=== PATIENT | male | born 1995 | race Caucasian/White ===

== ENCOUNTER 2020-04-05 14:24 | Emergency (ER) | payer SELFPAY ==
[2020-04-05 14:31] VITALS: BMI 29.5
--- NOTE | 2020-04-05 14:31 | XR_ITS ---
PROCEDURE: XR WRIST RT MIN 3V CLINICAL INDICATION: injury Pain COMPARISON: CR XR HAND RT MIN 3V from 04/05/2020 FINDINGS: No fracture is apparent. There is mild lateral subluxation of the 1st metacarpal which could be acute or chronic. Please correlate as the patient's area of pain and tenderness. No other significant anomalies are evident. IMPRESSION: Mild lateral subluxation of the 1st metacarpal otherwise negative right hand and wrist Dictated by: Garett Mccain MD 04/05/2020 15:41 Garett Mccain MD in [place] 04/05/2020 15:41
[2020-04-05 14:43] VITALS: BP 128/77; PULSE 76; RESP 14; TEMP 36.8; O2SAT 98; BMI 29.5
--- NOTE | 2020-04-05 15:48 | HMH.EDUTC ---
[facility] Disposition Clinical Impression: Right hand pain Crushing injury of right hand Qualifiers: Encounter type: initial encounter Qualified Code(s): S67.21XA - Crushing injury of right hand, initial encounter Disposition: Home, Self-Care Condition on Discharge: Good Instructions: DI for Crush Injury, DI for Hand Pain Additional Instructions: Rest the extremity, apply ice for 15 minutes as tolerated three or four times per day, Wear the fede wrap for compression, Elevate the extremity as tolerated while you are resting. Take ibuprofen for pain. I sent in a prescription to your pharmacy. Follow up with Dr. Sung (orthopedics) if you continue to have pain in the hand after 48 hours. I put in a referral but you need to call her office and schedule an appointment. Follow up with your regular doctor. GO TO THE ER FOR ANY WORSENING SYMPTOMS Referrals: PCP,No [Primary Care Provider] - Lucia Sung MD [Physician] - Forms: Work/School Release Time of Disposition: 15:51 Medical Decision Making - Medical Records Medical records reviewed: No: I reviewed the patient's medical records. - Micheal Inquiry Pt receiving controlled substance: No Vital Signs: 04/05/20 14:43 04/05/20 15:55 Temperature 98.3 F 98.3 F Temperature Source Oral Pulse Rate 76 Pulse Rate [Right Brachial] 76 Respiratory Rate 14 14 Blood Pressure 128/77 Blood Pressure [Right Arm] 128/77 Blood Pressure Mean [Right Arm] 94 Blood Pressure Source [Right Arm] Automatic Cuff Blood Pressure Position [Right Arm] Sitting 02 Sat by Pulse Oximetry 98 Oxygen Delivery Method Room Air - Radiology Data #1 Image(s): Hand Image Reviewed: Yes I reviewed the patient's radiology image, Yes I have reviewed radiologist's interpretation Preliminary Findings: No Fracture Seen PROCEDURE: XR WRIST RT MIN 3V CLINICAL INDICATION: injury Pain COMPARISON: CR XR HAND RT MIN 3V from 04/05/2020 FINDINGS: No fracture is apparent. There is mild lateral subluxation of the 1st metacarpal which could be acute or chronic. Please correlate as the patient's area of pain and tenderness. No other significant anomalies are evident. IMPRESSION: Mild lateral subluxation of the 1st metacarpal otherwise negative right hand and wrist Dictated by: Garett Mccain MD 04/05/2020 15:41 Garett Mccain MD in [place] 04/05/2020 15:41 [facility] HPI - General Stated complaint: hit hand oa 04/04 right hand Time Seen by Provider: 04/05/20 14:45 Mode of Arrival: Ambulatory Source of Information: Patient Limitations: No Limitations Description of Symptoms (Recalled from Triage Doc. by RN): PATIENT C/O PAIN IN LEFT HAND AND WRIST AFTER HITTING IT AT WORK ([employer]) YESTERDAY. HEENT Symptoms (Recalled from RN notes): No Resp Symptoms (Recalled from RN notes): No Skin Symptoms (Recalled from RN notes): No MS Symptoms (Recalled from RN notes): Yes Functional Status (Recalled from RN notes): WNL - History of Present Illness Provider Complaint: He states that he punched a wall yesterday. Since then he has had pain and soreness of his right hand at the base of his 5th finger. - Related Data Home Medications Medication Instructions Recorded Confirmed No Known Home Medications 04/05/20 04/05/20 Allergies Allergy/AdvReac Type Severity Reaction Status Date / Time No Known Allergies Allergy Verified 04/05/20 14:47 - Worker's Comp Is this a Worker's Comp case?: No [facility] History - Hepatitis A Screen Drug use history?: No High risk sexual behaviors?: No History of sexually transmitted infection?: No Currently employed?: No Childcare worker?: No Do you have indoor plumbing?: Yes Do you have electricity?: Yes Attestation statement:: This patient has been screened for Hepatitis A risk factors. I have reviewed the patient's past medical history: Yes - Social History Alcohol Intake: never Occupational Status: other Housing: house ROS Obt
[2020-04-05 15:55] VITALS: BP 128/77; PULSE 76; RESP 14; TEMP 36.8; O2SAT 98
== END 2020-04-05 15:58 | disposition home or self-care (01) ==
PROVIDERS: Emergency Provider Nurse Practitioner Family
DX: S67.21XA Crushing injury of right hand, initial encounter (principal); W22.01XA Walked into wall, initial encounter; Y92.63 Factory as the place of occurrence of the external cause; Y99.0 Civilian activity done for income or pay
CPT/HCPCS: 73110; 73130; 99201

== ENCOUNTER → 2021-05-08 15:53 | Outpatient (CLI) | payer SELFPAY | PROVIDERS: Visit Provider Nurse Practitioner | DX: Z20.822 Contact with and (suspected) exposure to COVID-19 (principal) | CPT/HCPCS: C9803; U0003; U0005 ==

== ENCOUNTER 2022-12-11 17:58 | Emergency (ER) | payer SELFPAY ==
[2022-12-11 18:01] VITALS: BP 153/72; PULSE 92; RESP 17; TEMP 37; O2SAT 92; BMI 35.4
--- NOTE | 2022-12-11 18:14 | HMH.EDGENADL ---
Discharge Plan Disposition Patient Disposition: Home, Self-Care Prescriptions Prescriptions: No Action No Known Home Medications Clinical Impressions Clinical Impression: Mass of left testicle, Inguinal hernia Instructions Patient Instructions: DI for Groin Hernia Discharge ED Provider: Mindy Cramer General Adult HPI <Mindy Cramer MD - Last Filed: 12/11/22 19:25> General Chief complaint: Urogenital-Male Stated complaint: Male issues Time Seen by Provider: 12/11/22 18:14 History of Present Illness HPI narrative: Patient is a 27-year-old male presenting with left scrotal swelling over the last few days. States that this has been intermittent since the last 2 years and he was evaluated for this several years ago at an ultrasound was told that he has spermatic cord swelling. States he has intermittently had some dysuria but has not had anything as of late. Denies any purulence coming from his penis or any STD exposures. Does lift heavy things at work. States that in the past some of the scrotal swelling has come and gone at the times when he notices it but this time its been persistent for the last several days. No sudden pain associate with this. No significant pain right now it is relatively asymptomatic. Related Data Home Medications Medication Instructions Recorded Confirmed No Known Home Medications 04/05/20 04/05/20 Allergies Allergy/AdvReac Type Severity Reaction Status Date / Time No Known Allergies Allergy Verified 04/05/20 14:47 <Isidro Abdullahi (ED)MD - Last Filed: 12/11/22 21:12> General Mode of Arrival: Ambulatory Source of Information: Patient and Parent(s) Limitations: No Limitations [facility] <Mindy Cramer MD - Last Filed: 12/11/22 19:25> [facility] Disclaimer: The information contained in this section may have been updated after the patient was seen, as this information can be updated by other users. Social History Smoking Status: Never smoker alcohol intake: never current occupational status: other Travel in the last 8 weeks: None housing: house <Mindy Cramer MD - Last Filed: 12/11/22 19:25> ROS Obtained: Yes All systems reviewed & no additional complaints except as documented Physical Exam <Mindy Cramer MD - Last Filed: 12/11/22 19:25> General General appearance: alert Respiratory Respiratory exam: Present normal lung sounds bilaterally; Absent respiratory distress Cardiovascular Cardiovascular exam: Present regular rate; Absent tachycardia Abdominal Exam Abdominal exam: Present other (Left scrotal swelling that extends into the left inguinal region) Neurological Exam Neurological exam: Present alert and oriented X3 <Isidro Abdullahi MD (ED) - Last Filed: 12/11/22 21:12> Head Head exam: atraumatic Eye Eye exam: Present PERRL and EOMI ENT ENT exam: Present normal oropharynx Neck Neck exam: Present trachea midline exam: Present scrotal swelling and other (lt inguinal hernia w/o incarceration); Absent urethral discharge Extremities Exam Extremities exam: Present full ROM Psychiatric Psychiatric exam: Present normal affect Skin Skin exam: Absent rash Medical Decision Making <Mindy Cramer MD - Last Filed: 12/11/22 19:25> Micheal Inquiry Pt receiving controlled substance: No Vital Signs: 12/11/22 18:01 12/11/22 18:30 Temperature 98.6 F Temperature Source Oral Pulse Rate 92 H Pulse Rate [Left Radial] 92 H Respiratory Rate 17 20 Blood Pressure 121/61 Blood Pressure [Right Arm] 153/72 H Blood Pressure Mean 81 Blood Pressure Mean [Right Arm] 99 Blood Pressure Source [Right Arm] Automatic Cuff Blood Pressure Position [Right Arm] Sitting 02 Sat by Pulse Oximetry 92 L 98 Oxygen Delivery Method Room Air Lab Data Lab Results 12/11/22 19:28: Lactate Dehydrogenase 194 L, HCG, Quant < 2 12/11/22 19:28: WBC 6.9, RBC 5.07, Hgb 15.3, Hct 45.9, MCV 90.5, MCH 30.1, MCHC 33.3, RDW 12.5, Plt Count 354, MPV 7.
--- NOTE | 2022-12-11 18:19 | US_ITS ---
PROCEDURE INFORMATION: Exam: US Scrotum Exam date and time: 12/11/2022 6:43 PM Age: 27 years old Clinical indication: Scrotum pain; Additional info: Left scrotal pain and swelling. Some pain. Been going on for a while TECHNIQUE: Imaging protocol: Real-time ultrasound of the scrotum and contents with color Doppler and image documentation. COMPARISON: SCRO US SCROTUM 08/18/2016 11:16 AM FINDINGS: Right testicle: Normal. No mass. No torsion. Normal vascular flow. Left testicle: Superior to the left testicle there is a heterogeneous echogenicity mass, possibly a large inguinal hernia. There appears to be minimal blood flow in the mass. The left testicle itself is normal with no findings of torsion. Epididymides: Normal. Scrotum/soft tissues: Trace bilateral hydroceles. IMPRESSION: 1. No testicular torsion or intratesticular mass. 2. Superior to the left testicle there is a heterogeneous echogenicity mass, possibly a large left inguinal hernia. Recommend CT scan correlation.
[2022-12-11 18:30] VITALS: BP 121/61; PULSE 92; RESP 20; O2SAT 98
--- NOTE | 2022-12-11 19:18 | CT_ITS ---
PROCEDURE INFORMATION: Exam: CT Abdomen And Pelvis With Contrast Exam date and time: 12/11/2022 7:58 PM Age: 27 years old Clinical indication: Abdominal pain; Additional info: Abnormal US, follow up for possible tumor/mass TECHNIQUE: Imaging protocol: Computed tomography of the abdomen and pelvis with contrast. Radiation optimization: All CT scans at this facility use at least one of these dose optimization techniques: automated exposure control; mA and/or kV adjustment per patient size (includes targeted exams where dose is matched to clinical indication); or iterative reconstruction. Contrast material: ISOVUE; Contrast volume: 75 ml; Contrast route: IV; REPORTING DATA: Count of CT and Cardiac NM exams in prior 12 months: This patient has received 0 known CTs and 0 known cardiac nuclear medicine studies in the 12 months prior to the current study. COMPARISON: US TESTICULAR 12/11/2022 6:43 PM FINDINGS: Lungs: Minimal right basilar atelectasis. Liver: Normal. No mass. Gallbladder and bile ducts: Normal. No calcified stones. No ductal dilation. Pancreas: Normal. No ductal dilation. Spleen: Normal. No splenomegaly. Adrenal glands: Normal. No mass. Kidneys and ureters: Normal. No hydronephrosis. Stomach and bowel: Unremarkable. No obstruction. No mucosal thickening. Appendix: Appendectomy change. Intraperitoneal space: Unremarkable. No free air. No significant fluid collection. Vasculature: Unremarkable. No abdominal aortic aneurysm. Lymph nodes: Unremarkable. No enlarged lymph nodes. Urinary bladder: Unremarkable as visualized. Reproductive: Unremarkable as visualized. Bones/joints: Unremarkable. No acute fracture. Soft tissues: There is a large left-sided fat containing inguinal hernia which accounts for the abnormality on the comparison ultrasound exam. There is a trace amount of fluid in the neck of the hernia. IMPRESSION: There is a large left-sided fat containing inguinal hernia accounting for the ultrasound abnormality. Correlate for incarceration of the hernia clinically. No significant findings of strangulation on CT.
[2022-12-11 19:37] LABS: Basophils # 0.1 K/mm3 (0-0.2); Basophils % 1.2 % (0.1-2.0); Eosinophils # 0.2 K/mm3 (0.0-0.4); Eosinophils % 3.2 % (0.1-12.0); Hematocrit 45.9 % (42.0-52.0); Hemoglobin 15.3 g/dL (14.1-18.0); Lymphocytes # 2.2 K/mm3 (0.7-4.5); Lymphocytes % 31.7 % (10-50); Mean Corpuscular HGB Conc 33.3 g/dL (31.8-35.4); Mean Corpuscular Hemoglobin 30.1 pg (27.0-31.2); Mean Corpuscular Volume 90.5 fl (80-94); Mean Platelet Volume 7.6 fl (7.4-10.4); Monocytes # 0.5 K/mm3 (0.1-1.0); Monocytes % 7.6 % (1.7-9.3); Neutrophils # 3.9 K/mm3 (1.8-7.8); Neutrophils % 56.2 % (37.0-80.0); Platelet Count 354 K/mm3 (142-424); Red Blood Count 5.07 M/mm3 (4.60-6.20); Red Cell Distribution Width 12.5 % (11.5-17.5); White Blood Count 6.9 K/mm3 (4.8-10.8)
[2022-12-11 19:40] LABS: Chloride 97 mmol/L (98-107); Potassium 3.9 mmoL/L (3.5-5.1); Sodium 139 mmol/L (136-145)
[2022-12-11 19:42] LABS: Alanine Aminotransferase 58 U/L (12-78); Aspartate Amino Transferase 39 U/L (17-59); Bilirubin,Total 1.1 mg/dl (0.2-1.3); Blood Urea Nitrogen 14 mg/dl (9-20); Creatinine Clearance Estimated 214 mL/min (50-200); Estimated Glomerular Filt Rate 116 ml/min (>60); GFR (African American) 140 ML/MIN (>60)
[2022-12-11 19:43] LABS: Albumin/Globulin Ratio 1.5 (1.1-1.8); Alkaline Phosphatase 63 U/L (38-126); Anion Gap 17.9 mEq/L (5-15); Calcium 9.1 mg/dl (8.4-10.2); Carbon Dioxide 28 mmol/L (22.0-30.0); Globulin 3.4 g/dL (1.3-3.2); Glucose 90 mg/dl (74-100); Total Protein,Serum 8.4 g/dl (6.3-8.2)
[2022-12-11 19:54] LABS: Lactate Dehydrogenase 194 U/L (313-618)
[2022-12-11 20:01] LABS: HCG,Quantitative < 2 mIU/ml (0-5.42)
[2022-12-11 21:14] VITALS: BP 121/77; PULSE 80; RESP 16; TEMP 36.7; O2SAT 98
[2022-12-13 08:12] LABS: AFP, Tumor Marker 2.9 ng/mL (0.0-5.7)
== END 2022-12-11 21:16 | disposition home or self-care (01) ==
PROVIDERS: Emergency Provider Student in an Organized Health Care Education/Training Program
DX: K40.90 Unilateral inguinal hernia, without obstruction or gangrene, not specified as recurrent; R22.2 Localized swelling, mass and lump, trunk
CPT/HCPCS: 74177; 76870; 80053; 82105; 83615; 84702; 85025; 96360; 99285; Q9967

== ENCOUNTER 2024-10-19 08:37 | Emergency (ER) | payer OTHER, SELFPAY ==
[2024-10-19 08:45] VITALS: BP 118/60; PULSE 68; RESP 16; TEMP 36.7; O2SAT 98; BMI 34.9
[2024-10-19] MEDS: ACETAMINOPHEN 500MG TAB 1000 MG PO (09:03)
[2024-10-19] MEDS: IBUPROFEN 400 MG TABLET 800 MG PO (09:03)
--- NOTE | 2024-10-19 09:16 | ED_ITS ---
Discharge Plan Disposition Patient Disposition: Home, Self-Care Condition: Good Prescriptions Prescriptions: No Action No Known Home Medications Referrals Follow up/Referrals: Provider,Referral, [Primary Care Provider] - See instructions Activity Restrictions/Add. Instructions Additional Instructions/Restrictions: You were evaluated in the emergency department today. At this time, x-rays do not show any broken bones. If you continue to have significant pain, it may be worthwhile to obtain a repeat x-ray in 1 week with primary care. Sometimes fractures can be missed on initial x-ray. Take Tylenol and ibuprofen every 4-6 hours as needed for pain. Rest, ice, and elevate your hand to help reduce pain and swelling. Return to the emergency department for new or worsening symptoms. Clinical Impressions Clinical Impression: Strain of right thumb Stand Alone Forms Stand Alone Forms: Work/School Release Instructions Patient Instructions: DI for Hand Injury, DI for Hand Pain Print Language Print Language: Filipino Discharge ED Provider: Rosalia Rahman General Adult HPI General Chief complaint: Extremity Injury, Upper Stated complaint: Pain and swelling L thumb Time Seen by Provider: 10/19/24 08:57 Mode of Arrival: Ambulatory Source of Information: Patient Description of Symptoms (Recalled from ER Triage Doc. by RN): Patient reports jamming his right thumb two days ago at work. Complaint of pain and swelling. History of Present Illness HPI narrative: This patient is a 29-year-old male who denies significant past medical history presenting to the emergency department for evaluation with concern for left thum b injury. He states that he jammed his thumb at work 2 days ago and has had pain in his left thumb since. He still able to move it but he states that range of motion is limited secondary to swelling. No numbness, tingling, or other concerns Related Data Home Medications ?Medication ?Instructions ?Recorded ?Confirmed No Known Home Medications 04/05/20 12/15/22 Allergies Allergy/AdvReac Type Severity Reaction Status Date / Time No Known Allergies Allergy Verified 12/15/22 13:43 [facility] Disclaimer: The information contained in this section may have been updated after the patient was seen, as this information can be updated by other users. Surgical History History of appendectomy Social History Smoking Status: Never smoker alcohol intake: never current occupational status: other Travel in the last 8 weeks: None housing: house Have you lived/traveled outside [place] in past 30 days?: No Contact w/someone who lives/traveled outside US past 30 days?: No Exposure to someone with infectious disease in past 14 days?: No Do you have a fever (greater than 100.4 F or 38 C)?: No Have you tested positive for COVID-19: No Exposed to someone with COVID-19 in past 14 days?: No Do you have a sore throat?: No Do you have a cough?: No Do you have any weakness?: No Do you have any diarrhea?: No Are you experiencing any unusual bleeding?: No Do you have any muscle aches/pain?: No Do you have any abdominal pain?: No Are you experiencing loss of taste or smell?: No ROS Obtained: Yes All systems reviewed & no additional complaints except as documented Physical Exam General General appearance: alert and in no apparent distress Head Head exam: atraumatic and normocephalic Eye Eye exam: Present normal appearance, PERRL and EOMI ENT ENT exam: Present normal exam, normal oropharynx, mucous membranes moist and normal external ear exam Neck Neck exam: Present normal inspection, full ROM and trachea midline; Absent tenderness Chest Chest inspection: Present normal inspection and symmetric chest wall rise; Absent tenderness Respiratory Respiratory exam: Present normal lung sounds bilaterally; Absent respiratory distress, wheezes, stridor or accessory muscle use Cardiovascular Cardiovascular exam: Present regular rate and normal rhythm Abdominal Exam Abdominal exam: Present soft; Absent distention, tenderness or guarding Extremities Exam Extremities exam: Present full ROM, tenderness, normal capillary refill and other (Intact range of motion of the left thumb with some soft tissue swelling. Neurovascularly intact distally. He has tenderness to palpation over the metacarpal joint and the proximal phalanx but no anatomical snuffbox tenderness.); Absent edema Back Exam Back exam: Present normal inspection and full ROM; Absent tenderness Neurological Exam Neurological exam: Present alert, oriented X3, CN II-XII intact and normal gait; Absent motor sensory deficit Psychiatric Psychiatric exam: Present normal affect and normal mood Skin Skin exam: Present warm and dry Medical Decision Making Medical Records Medical records reviewed: Yes I reviewed the patient's medical records. Screening: Per USPSTF and CDC recommendations, given the prevalence of disease in our region, it is our hospital?s policy to screen for HIV and viral Hepatitis for all patients aged 18 and over and those with ongoing risk factors. Micheal Inquiry Pt receiving controlled substance: No Vital Signs: 10/19/24 08:45 10/19/24 10:37 Temperature 98.0 F 98.0 F Temperature Source Oral Oral Pulse Rate 64 Pulse Rate [Radial] 68 Respiratory Rate 16 16 Blood Pressure 105/62 L Blood Pressure [Right Arm] 118/60 Blood Pressure Mean [Right Arm] 79 Blood Pressure Source Automatic Cuff Blood Pressure Source [Right Arm] Manual Cuff/ Doppler Blood Pressure Position Sitting Blood Pressure Position [Right Arm] Sitting 02 Sat by Pulse Oximetry 98 Oxygen Delivery Method Room Air Room Air Lab Data Lab results reviewed: Yes I reviewed the patient's lab results. Orders (Tests/Meds): ED MEDICATIONS Discontinued Medications Generic Name Dose Route Start Last Admin Trade Name Freq PRN Reason Stop Dose Admin Acetaminophen 1,000 mg 10/19/24 08:58 10/19/24 09:03 Acetaminophen 500mg Tab PO 10/19/24 08:59 1,000 mg ONCE ONE Administration Ibuprofen 800 mg 10/19/24 08:58 10/19/24 09:03 Ibuprofen 400 Mg Tablet PO 10/19/24 08:59 800 mg ONCE ONE Administration ORDERS Category Date Time Status XR hand RT min 3V Stat Exams 10/19/24 09:26 Completed Medical Decision Narrative: In summary, this patient is a 29-year-old male presenting to the Emergency Department for evaluation of left thumb pain after jamming it at work 2 days ago. Differential diagnoses considered include but are not limited to, contusion, strain/sprain, tendon injury, neurovascular injury. Ruling out the most morbid conditions drove assessment. On exam, the patient is neurologically vascularly intact with intact range of motion of the left thumb. He does have some soft tissue swelling. He has no tenderness over his anatomical snuffbox to suggest scaphoid fracture. Workup included x-rays of the left hand. Patient was given oral Tylenol and ibuprofen for pain. I independently interpreted x-ray prior to the radiologist read and noted no acute fracture. Please see their read for final interpretation. Ultimately at this time, I feel the patient is appropriate for discharge with instructions for supportive management of likely strain/sprain. He was given instructions for close follow-up, strict return precautions, and he was discharged after all questions were answered. Critical Care Critical Care Time Critical Care Time: No
--- NOTE | 2024-10-19 09:26 | XR_ITS ---
FINAL REPORT CLINICAL HISTORY: injury, STATES THUMB GOT JAMMED FINDINGS: AP, lateral and oblique views of the right hand were obtained. There is no prior exam for comparison. There is no acute fracture or dislocation. The joint spaces are preserved. The soft tissues are normal. IMPRESSION: No acute osseous abnormality of the right hand. Reviewed, Interpreted and Dictated by Elisabeth Beckman MD Transcribed by Luly Duval Authenticated and [facility]
[2024-10-19 10:37] VITALS: BP 105/62; PULSE 64; RESP 16; TEMP 36.7; O2SAT 97
== END 2024-10-19 10:37 | disposition home or self-care (01) ==
PROVIDERS: Emergency Provider Emergency Medicine
DX: S66.411A Strain of intrinsic muscle, fascia and tendon of right thumb at wrist and hand level, initial encounter (principal); M79.644 Pain in right finger(s); X50.0XXA Overexertion from strenuous movement or load, initial encounter; Y93.9 Activity, unspecified; Y92.89 Other specified places as the place of occurrence of the external cause
CPT/HCPCS: 73130; 99283